=== PATIENT | female | born 1985 | race Caucasian/White ===

== ENCOUNTER 2019-12-16 11:41 | Emergency (ER) | payer MEDICAID ==
[~2019-12-16] VITALS: Ht 165.1 cm; Wt 66.0 kg
[~2019-12-16 11:41] MED LIST: ONDA4TAB59 PO
[2019-12-16 12:09] VITALS: BP 131/114
== END 2019-12-16 14:34 | disposition home or self-care (01) ==
LOC: ER 11:42
DX: S69.91XA Unspecified injury of right wrist, hand and finger(s), initial encounter (principal); R20.2 Paresthesia of skin; R20.0 Anesthesia of skin; Z98.890 Other specified postprocedural states; Z79.899 Other long term (current) drug therapy; X58.XXXA Exposure to other specified factors, initial encounter; Y93.89 Activity, other specified; Y92.89 Other specified places as the place of occurrence of the external cause; Y99.8 Other external cause status
CPT/HCPCS: 29125; 73090; 73110; 99284

== ENCOUNTER 2021-02-01 07:13 | Emergency (ER) | payer MEDICAID ==
[~2021-02-01] VITALS: Ht 165.1 cm; Wt 64.8 kg
[2021-02-01 07:18] VITALS: BP 129/81
[2021-02-01] MEDS ORDERED: ondansetron/PF 4mg/2ml inj IV ONE (07:30)
[2021-02-01] MEDS ORDERED: normal saline 1000ml 1,000 ML IV ONE (07:30)
[2021-02-01] MEDS ORDERED: morphine 4 MG/ML inj SYRINge IV ONE (07:30)
--- NOTE | 2021-02-01 07:50 | NUR ---
No ER beds available at this time. Patient is getting labs drawn in waiting room. Urine CCMS sent for labs.
[2021-02-01 08:20] LABS: URINE HCG NEGATIVE (NEG)
[2021-02-01 08:21] LABS: BASOPHILS % (AUTO) 0.5 % (0-1); EOSINOPHILS # (AUTO) 0.1 X10'3 (0-0.9); EOSINOPHILS % (AUTO) 1.5 % (0-6); HEMOGLOBIN 14.3 g/dl (12.0-16.0); LYMPHOCYTES # (AUTO) 2.3 X10'3 (1.1-4.8); LYMPHOCYTES % (AUTO) 38.5 % (21-51); MEAN CORPUSCULAR HEMOGLOBIN 29.8 PG (27.0-31.0); MEAN CORPUSCULAR HGB CONC 34.2 g/dL (33.0-36.5); MEAN CORPUSCULAR VOLUME 87.1 FL (78-98); MEAN PLATELET VOLUME 8.2 FL (7.4-10.4); MONOCYTES # (AUTO) 0.7 X10'3 (0-0.9); MONOCYTES % (AUTO) 11.1 % (2-12); NEUTROPHILS # (AUTO) 2.9 X10'3 (1.8-7.7); NEUTROPHILS % (AUTO) 48.4 % (42-75); PLATELET COUNT 249 X10'3 (140-440); RED BLOOD COUNT 4.82 X10'6 (4.20-5.60); RED CELL DISTRIBUTION WIDTH 13.7 % (11.5-14.5); WHITE BLOOD COUNT 5.9 X10'3 (4.5-11.0)
[2021-02-01 08:23] LABS: ALANINE AMINOTRANSFERASE 22 U/L (12-78); ALBUMIN 3.8 G/DL (3.4-5.0); ALBUMIN/GLOBULIN RATIO 1.2 (1.1-1.5); ALKALINE PHOSPHATASE 65 IU/L (46-116); ANION GAP 9 (8-16); ASPARTATE AMINO TRANSFERASE 16 U/L (10-37); BILIRUBIN,TOTAL 0.8 MG/DL (0.1-1.0); BLOOD UREA NITROGEN 7 MG/DL (7-18); BUN/CREATININE RATIO 10.8 (6.6-38.0); CHLORIDE 109 MMOL/L (99-107); CREATININE 0.65 MG/DL (0.40-0.90); GLUCOSE 89 MG/DL (70-104); POTASSIUM 3.9 MMOL/L (3.5-5.1); SODIUM 143 MMOL/L (135-145); TOTAL CARBON DIOXIDE 25.1 MMOL/L (24-32); TOTAL PROTEIN 7.1 G/DL (6.4-8.2); eGFR > 90 ML/MIN
--- NOTE | 2021-02-01 08:39 | NUR ---
Patient was evaluated by MD in Triage. She is awaiting a room in main ED.
[2021-02-01 08:42] LABS: CLARITY,URINE SLIGHTLY CLOUDY (Clear); COLOR,URINE STRAW (Yellow); GLUCOSE, URINE NEGATIVE (Neg); KETONES,URINE NEGATIVE (Neg); LEUKOCYTE ESTERASE ,URINE TRACE (Neg); NITRITES, URINE NEGATIVE (Neg); OCCULT BLOOD,URINE NEGATIVE (Neg); PH,URINE 7.5 (4.8-8.0); PROTEIN,URINE NEGATIVE (Neg); UA COLLECTION TYPE CLN CATCH MIDSTREAM; UROBILINOGEN,URINE 0.2 E.U/dL (0.2-1.0)
--- NOTE | 2021-02-01 08:54 | NUR ---
Patient states she now feels better. Disch home with flu inst. No distress. Patient declined IV, pain medications, and antiemetics. ER MD advised.
[2021-02-01 08:55] LABS: BACTERIA,URINE 1+ /HPF (Neg); MUCUS STRANDS NONE SEEN /LPF (Neg); RBC,URINE NONE SEEN /HPF (0-2); SQUAMOUS EPITHELIAL CELL,UR FEW /LPF (FEW); WBC,URINE 0-4 /HPF (0-4)
--- NOTE | 2021-02-01 08:56 | NUR ---
CT was done. See report.
[2021-02-01] MEDS ORDERED: morphine 10mg/ml inj. IM ONE (09:00)
[2021-02-01] MEDS ORDERED: ketorolac trometh. 30mg/ml inj. IV ONE (09:00)
--- NOTE | 2021-02-01 09:07 | NUR ---
Patient moved to bed 16, she will be receiving IM Morphine and Toradol prior to discharge.
== END 2021-02-01 09:33 | disposition home or self-care (01) ==
LOC: ER 07:14
DX: R10.32 Left lower quadrant pain (principal); Z87.442 Personal history of urinary calculi
CPT/HCPCS: 36415; 74176; 80053; 81001; 81025; 85025; 96372; 96374; 99285; J1885; J2270

== ENCOUNTER 2021-02-18 22:30 | Emergency (ER) | payer MEDICAID ==
[~2021-02-18] VITALS: Ht 165.1 cm; Wt 62.7 kg
[2021-02-18] MEDS ORDERED: ALBU6.7H9 INH (23:49)
[2021-02-19 01:16] VITALS: BP 158/76
== END 2021-02-19 01:00 | disposition home or self-care (01) ==
LOC: ER 22:31
DX: J06.9 Acute upper respiratory infection, unspecified (principal); Z20.822 Contact with and (suspected) exposure to COVID-19; R06.00 Dyspnea, unspecified; I10 Essential (primary) hypertension; R53.1 Weakness; R09.89 Other specified symptoms and signs involving the circulatory and respiratory systems; R07.89 Other chest pain; Z79.899 Other long term (current) drug therapy
CPT/HCPCS: 36415; 71045; 93005; 99285; U0003; U0005

== ENCOUNTER 2021-05-10 02:34 | Emergency (ER) | payer MEDICAID ==
[~2021-05-10] VITALS: Ht 165.1 cm; Wt 63.6 kg
[~2021-05-10 02:34] MED LIST changes: +ALBU6.7H9 INH
[2021-05-10] MEDS ORDERED: LIDO20SO16 PO (04:09)
[2021-05-10] MEDS ORDERED: penicillin G benzathine 1.2 million unit/2ml syringe IM ONE (04:10)
[2021-05-10] MEDS: PENICILLIN G BENZATHINE 2,400,000 UNIT/4 ML SYRINGE IM ONE (04:50)
[2021-05-10 04:55] VITALS: BP 122/82
== END 2021-05-10 04:56 | disposition home or self-care (01) ==
LOC: ER 02:35
DX: J02.0 Streptococcal pharyngitis (principal); J04.0 Acute laryngitis
CPT/HCPCS: 96372; 99283; J0561

== ENCOUNTER 2022-01-01 19:53 | Emergency (ER) | payer MEDICAID ==
[~2022-01-01] VITALS: Ht 165.1 cm; Wt 66.8 kg
[~2022-01-01 19:53] MED LIST changes: +LIDO20SO16 PO
[2022-01-01 20:23] LABS: CLARITY,URINE CLOUDY (Clear); COLOR,URINE YELLOW (Yellow); GLUCOSE, URINE NEGATIVE (Neg); KETONES,URINE NEGATIVE (Neg); LEUKOCYTE ESTERASE ,URINE NEGATIVE (Neg); NITRITES, URINE NEGATIVE (Neg); OCCULT BLOOD,URINE LARGE (Neg); PH,URINE >=9.0 (4.8-8.0); PROTEIN,URINE TRACE mg/dl (Neg); URINE HCG NEGATIVE (NEG)
[2022-01-01 20:38] LABS: UA COLLECTION TYPE CLN CATCH MIDSTREAM
[2022-01-01 20:39] LABS: AMORPHOUS PHOSPHATES 1+; BACTERIA,URINE FEW /HPF (Neg); RBC,URINE 50-100 /HPF (0-2); SQUAMOUS EPITHELIAL CELL,UR FEW /LPF (FEW); WBC,URINE 0-4 /HPF (0-4)
[2022-01-01] MEDS ORDERED: ketorolac tromethamine 15mg/ml inj. IM ONE (21:00)
[2022-01-01] MEDS ORDERED: ondansetron/PF 4mg/2ml inj IM ONE (21:00)
[2022-01-01] MEDS ORDERED: HYDROcodone/acetaminophen 5mg/325mg tablet PO ONE ×2 (21:05→21:55)
[2022-01-01] MEDS ORDERED: ondansetron 4mg rapidly disintigrating tab PO ONE (21:15)
[2022-01-01 21:42] LABS: BASOPHILS % (AUTO) 0.7 % (0-1); EOSINOPHILS # (AUTO) 0.1 X10'3 (0-0.9); EOSINOPHILS % (AUTO) 0.8 % (0-6); HEMATOCRIT 40.4 % (35.0-45.0); HEMOGLOBIN 13.8 g/dl (12.0-16.0); LYMPHOCYTES # (AUTO) 2.1 X10'3 (1.1-4.8); LYMPHOCYTES % (AUTO) 28.7 % (21-51); MEAN CORPUSCULAR HEMOGLOBIN 29.3 PG (27.0-31.0); MEAN CORPUSCULAR HGB CONC 34.2 g/dL (33.0-36.5); MEAN CORPUSCULAR VOLUME 85.8 FL (78-98); MEAN PLATELET VOLUME 8.2 FL (7.4-10.4); MONOCYTES # (AUTO) 0.5 X10'3 (0-0.9); MONOCYTES % (AUTO) 7.6 % (2-12); NEUTROPHILS # (AUTO) 4.5 X10'3 (1.8-7.7); NEUTROPHILS % (AUTO) 62.2 % (42-75); PLATELET COUNT 266 X10'3 (140-440); RED BLOOD COUNT 4.71 X10'6 (4.20-5.60); RED CELL DISTRIBUTION WIDTH 12.9 % (11.5-14.5); WHITE BLOOD COUNT 7.2 X10'3 (4.5-11.0)
[2022-01-01] MEDS ORDERED: tamsulosin 0.4mg capsule PO ONE (21:55)
[2022-01-01 21:58] LABS: ALANINE AMINOTRANSFERASE 271 U/L (12-78); ALBUMIN 4.1 G/DL (3.4-5.0); ALBUMIN/GLOBULIN RATIO 1.1 (1.1-1.5); ALKALINE PHOSPHATASE 96 IU/L (46-116); ANION GAP 9 (8-16); ASPARTATE AMINO TRANSFERASE 411 U/L (10-37); BILIRUBIN,TOTAL 1.3 MG/DL (0.1-1.0); BLOOD UREA NITROGEN 8 MG/DL (7-18); BUN/CREATININE RATIO 10.1 (6.6-38.0); CALCIUM 8.7 MG/DL (8.5-10.1); CHLORIDE 105 MMOL/L (99-107); CREATININE 0.79 MG/DL (0.40-0.90); GLUCOSE 122 MG/DL (70-104); POTASSIUM 3.4 MMOL/L (3.5-5.1); SODIUM 142 MMOL/L (135-145); TOTAL CARBON DIOXIDE 28.1 MMOL/L (24-32); TOTAL PROTEIN 7.8 G/DL (6.4-8.2); eGFR 82 ML/MIN
[2022-01-01] MEDS ORDERED: FLO0.4C PO (22:12)
[2022-01-01] MEDS ORDERED: HYDR-3965 PO (22:12)
[2022-01-01] MEDS ORDERED: ONDA8TAB13 PO (22:12)
[2022-01-01 22:21] VITALS: BP 110/57
== END 2022-01-01 22:23 | disposition home or self-care (01) ==
LOC: ER 19:54
DX: N23 Unspecified renal colic (principal); Z98.890 Other specified postprocedural states
CPT/HCPCS: 36415; 80053; 81001; 81025; 85025; 96372; 99284; J1885

== ENCOUNTER 2022-11-08 20:27 | Inpatient (IN) | payer MEDICAID ==
[~2022-11-08] VITALS: Ht 165.1 cm; Wt 65.9 kg
[~2022-11-08 20:27] MED LIST changes: +ALBU6.7H14 INH; -ALBU6.7H9 INH; +ONDA8TAB13 PO
[2022-11-08 20:50] LABS: BASOPHILS # (AUTO) 0.1 X10'3 (0-0.2); BASOPHILS % (AUTO) 0.7 % (0-1); EOSINOPHILS # (AUTO) 0.2 X10'3 (0-0.9); EOSINOPHILS % (AUTO) 2.4 % (0-6); HEMATOCRIT 40.8 % (35.0-45.0); HEMOGLOBIN 13.9 g/dl (12.0-16.0); LYMPHOCYTES # (AUTO) 1.8 X10'3 (1.1-4.8); LYMPHOCYTES % (AUTO) 22.1 % (21-51); MEAN CORPUSCULAR HEMOGLOBIN 29.7 PG (27.0-31.0); MEAN CORPUSCULAR VOLUME 87.4 FL (78-98); MEAN PLATELET VOLUME 8.4 FL (7.4-10.4); MONOCYTES # (AUTO) 0.7 X10'3 (0-0.9); MONOCYTES % (AUTO) 8.5 % (2-12); NEUTROPHILS # (AUTO) 5.5 X10'3 (1.8-7.7); NEUTROPHILS % (AUTO) 66.3 % (42-75); PLATELET COUNT 272 X10'3 (140-440); RED BLOOD COUNT 4.67 X10'6 (4.20-5.60); RED CELL DISTRIBUTION WIDTH 13.1 % (11.5-14.5); WHITE BLOOD COUNT 8.3 X10'3 (4.5-11.0)
[2022-11-08 21:02] LABS: ALANINE AMINOTRANSFERASE 365 U/L (12-78); ALBUMIN 4.3 G/DL (3.4-5.0); ALBUMIN/GLOBULIN RATIO 1.3 (1.1-1.5); ALKALINE PHOSPHATASE 99 IU/L (46-116); ANION GAP 5 (8-16); ASPARTATE AMINO TRANSFERASE 320 U/L (10-37); BILIRUBIN,TOTAL 2.8 MG/DL (0.1-1.0); BLOOD UREA NITROGEN 10 MG/DL (7-18); BUN/CREATININE RATIO 12.8 (10.0-20.0); CALCIUM 9.5 MG/DL (8.5-10.1); CHLORIDE 101 MMOL/L (99-107); CREATININE 0.78 MG/DL (0.40-0.90); GLUCOSE 101 MG/DL (70-104); POTASSIUM 3.7 MMOL/L (3.5-5.1); SODIUM 139 MMOL/L (135-145); TOTAL CARBON DIOXIDE 32.7 MMOL/L (24-32); TOTAL PROTEIN 7.5 G/DL (6.4-8.2); eGFR 83 ML/MIN
[2022-11-08 21:08] LABS: MAGNESIUM 1.8 MG/DL (1.5-2.4)
[2022-11-08] MEDS ORDERED: ondansetron/PF 4mg/2ml inj IM ONE (21:30)
[2022-11-08] MEDS ORDERED: morphine 4 MG/ML inj SYRINge IV ONE (21:30)
[2022-11-08] MEDS ORDERED: ondansetron/PF 4mg/2ml inj IV STA (21:41)
--- NOTE | 2022-11-08 21:54 | NUR ---
us at bedside
[2022-11-08 22:42] LABS: LIPASE 136 U/L (73-393)
[2022-11-08] MEDS ORDERED: FLUT15.845 BOTHNARES (22:43)
[2022-11-08] MEDS ORDERED: GABA300C PO (22:43)
[2022-11-08] MEDS ORDERED: HYDR-3686 PO (22:43)
[2022-11-08] MEDS ORDERED: magnesium 2GM in 50ml NS 50 ML IV PRN (23:00)
[2022-11-08] MEDS ORDERED: magnesium Cl slow-release 64mg tablet PO PRN (23:00)
[2022-11-08] MEDS ORDERED: mag hydrox/Alum hydrox/simeth 30ml oral suspension PO PRN (23:00)
[2022-11-08] MEDS ORDERED: potassium Cl 40MEQ/1/2NS 520ml 520 ML IV PRN (23:00)
[2022-11-08] MEDS ORDERED: magnesium hydroxide 30ml (MOM) UD suspension PO PRN (23:00)
[2022-11-08] MEDS ORDERED: potassium Cl 20 mEq SR tablet PO PRN ×2 (23:00)
[2022-11-08] MEDS ORDERED: magnesium 4gm in 100ml NS 100 ML IV PRN (23:00)
[2022-11-08] MEDS ORDERED: hydrOXYzine 25 MG tablet PO PRN (23:05)
[2022-11-08] MEDS: normal saline 1000ml 1,000 ML IV SCH (23:17)
[2022-11-08] MEDS: morphine 2 MG/ML inj. syringe IV PRN (23:19)
[2022-11-09] VITALS (20 sets, daily range): BP systolic 96–134; BP diastolic 38–87
[2022-11-09] MEDS ORDERED: albuterol 2.5 MG/3 ML nebule NEB SCH (02:00)
--- NOTE | 2022-11-09 02:00 | NUR ---
Patient in room ORTHO 4021. I have received report from Shai CANTOR and had the opportunity to ask questions and assume patient care.
--- NOTE | 2022-11-09 02:15 | NUR ---
REPORT CALLED TO FLOOR RN, PT TX TO ROOM 4021A BY NURSE.
[2022-11-09] MEDS: morphine 2 MG/ML inj. syringe IV PRN ×3 (03:01→11:50)
[2022-11-09] MEDS: ondansetron/PF 4mg/2ml inj IV PRN ×2 (03:01→11:58)
[2022-11-09 06:09] LABS: BASOPHILS % (AUTO) 0.5 % (0-1); EOSINOPHILS # (AUTO) 0.4 X10'3 (0-0.9); EOSINOPHILS % (AUTO) 5.1 % (0-6); HEMATOCRIT 38.6 % (35.0-45.0); HEMOGLOBIN 12.9 g/dl (12.0-16.0); LYMPHOCYTES # (AUTO) 2.5 X10'3 (1.1-4.8); LYMPHOCYTES % (AUTO) 33.9 % (21-51); MEAN CORPUSCULAR HEMOGLOBIN 29.4 PG (27.0-31.0); MEAN CORPUSCULAR HGB CONC 33.5 g/dL (33.0-36.5); MEAN CORPUSCULAR VOLUME 87.6 FL (78-98); MEAN PLATELET VOLUME 8.6 FL (7.4-10.4); MONOCYTES # (AUTO) 0.6 X10'3 (0-0.9); MONOCYTES % (AUTO) 8.9 % (2-12); NEUTROPHILS # (AUTO) 3.7 X10'3 (1.8-7.7); NEUTROPHILS % (AUTO) 51.6 % (42-75); PLATELET COUNT 249 X10'3 (140-440); RED CELL DISTRIBUTION WIDTH 13.3 % (11.5-14.5); WHITE BLOOD COUNT 7.2 X10'3 (4.5-11.0)
--- NOTE | 2022-11-09 06:17 | NUR ---
Problems reprioritized. Patient report given, questions answered & plan of care reviewed with Lyle CHOI.
[2022-11-09 06:25] LABS: ALANINE AMINOTRANSFERASE 316 U/L (12-78); ALBUMIN 3.4 G/DL (3.4-5.0); ALKALINE PHOSPHATASE 86 IU/L (46-116); ANION GAP 3 (8-16); ASPARTATE AMINO TRANSFERASE 221 U/L (10-37); BILIRUBIN,TOTAL 4.2 MG/DL (0.1-1.0); BLOOD UREA NITROGEN 8 MG/DL (7-18); BUN/CREATININE RATIO 10.8 (10.0-20.0); CALCIUM 8.8 MG/DL (8.5-10.1); CHLORIDE 105 MMOL/L (99-107); CREATININE 0.74 MG/DL (0.40-0.90); GLUCOSE 89 MG/DL (70-104); MAGNESIUM 1.8 MG/DL (1.5-2.4); POTASSIUM 3.7 MMOL/L (3.5-5.1); SODIUM 140 MMOL/L (135-145); TOTAL CARBON DIOXIDE 31.9 MMOL/L (24-32); eGFR 88 ML/MIN
[2022-11-09 06:31] LABS: ALBUMIN/GLOBULIN RATIO 1.2 (1.1-1.5); TOTAL PROTEIN 6.2 G/DL (6.4-8.2)
[2022-11-09] MEDS: K and/or MAG REPLACEMENT MC SCH ×2 (07:05→20:00)
[2022-11-09] MEDS: docusate sod 100mg capsule PO SCH ×2 (07:09→20:24)
[2022-11-09] MEDS: fluticasone nasal spray 16GM bottle NS SCH (07:14)
[2022-11-09] MEDS: normal saline 1000ml 1,000 ML IV SCH ×2 (14:20→19:00)
[2022-11-09] MEDS: CefTRIAXone/D5W-Rocephin 1gm 50 ML IV SCH (14:21)
--- NOTE | 2022-11-09 14:25 | NUR ---
NS Priimary IV bag not scanning after multiple failed attempts.
[2022-11-09 14:34] LABS: BETA HCG,QUANTITATIVE < 1.0 mIU/ml
[2022-11-09] MEDS ORDERED: proCHLORperazine 10 MG/2 ml inj IV PRN (14:55)
--- NOTE | 2022-11-09 16:31 | NUR ---
[id number] chelle Kiran- Clarifying how long PT needs to stay NPO. Family at bedside looking for updates. Thanks. Taylor [id number]
[2022-11-09] MEDS ORDERED: fentaNYL/PF 50MCG/1 ML 2ML syringe ONE (16:43)
[2022-11-09] MEDS ORDERED: glucagon, human recombinant 1mg kit ONE (16:43)
[2022-11-09] MEDS ORDERED: MIDAZolam 1 MG/ML 5ML VIAL ONE (16:44)
[2022-11-09] MEDS ORDERED: diphenhydrAMINE 50 mg/ml inj ONE (16:44)
[2022-11-09] MEDS ORDERED: LIDOcaine Viscous 15ml cup ONE (16:44)
[2022-11-09] MEDS ORDERED: iohexol 300mg/ml 100ml inj. ONE (16:44)
--- NOTE | 2022-11-09 18:00 | NUR ---
I have reviewed and agree with interventions, assessments, and documentation by Taylor Edgar LVN.
--- NOTE | 2022-11-09 18:20 | NUR ---
Patient in room ORTHO 4012. I have received report from SAKSHI Masters and had the opportunity to ask questions and assume patient care. Patient in GI Lab for ERCP
--- NOTE | 2022-11-09 19:27 | NUR ---
Problems reprioritized. Patient report given, questions answered & plan of care reviewed with SAKSHI Moser for IR. Patient is back for ERCP, no stones found just sludge. She is back to bed and resting comfortably, I will continue to monitor.
[2022-11-09] MEDS: heparin, porcine 5000 units/ml vial SQ SCH (20:25)
[2022-11-09] MEDS: gabapentin 300mg capsule PO SCH (20:25)
[2022-11-10] VITALS (16 sets, daily range): BP systolic 112–167; BP diastolic 50–107
[2022-11-10] MEDS: normal saline 1000ml 1,000 ML IV SCH ×3 (05:00→20:18)
--- NOTE | 2022-11-10 06:00 | NUR ---
Problems reprioritized. Patient report given, questions answered & plan of care reviewed with SAKSHI Vazquez.
[2022-11-10 06:51] LABS: BASOPHILS % (AUTO) 0.4 % (0-1); EOSINOPHILS # (AUTO) 0.2 X10'3 (0-0.9); EOSINOPHILS % (AUTO) 1.9 % (0-6); HEMATOCRIT 36.2 % (35.0-45.0); HEMOGLOBIN 12.3 g/dl (12.0-16.0); LYMPHOCYTES # (AUTO) 1.9 X10'3 (1.1-4.8); LYMPHOCYTES % (AUTO) 20.3 % (21-51); MEAN CORPUSCULAR HGB CONC 33.9 g/dL (33.0-36.5); MEAN CORPUSCULAR VOLUME 88.4 FL (78-98); MEAN PLATELET VOLUME 8.3 FL (7.4-10.4); MONOCYTES # (AUTO) 0.8 X10'3 (0-0.9); MONOCYTES % (AUTO) 7.9 % (2-12); NEUTROPHILS # (AUTO) 6.6 X10'3 (1.8-7.7); NEUTROPHILS % (AUTO) 69.5 % (42-75); PLATELET COUNT 237 X10'3 (140-440); RED BLOOD COUNT 4.09 X10'6 (4.20-5.60); RED CELL DISTRIBUTION WIDTH 13.2 % (11.5-14.5); WHITE BLOOD COUNT 9.5 X10'3 (4.5-11.0)
[2022-11-10 07:00] LABS: ALANINE AMINOTRANSFERASE 189 U/L (12-78); ALBUMIN 3.1 G/DL (3.4-5.0); ALBUMIN/GLOBULIN RATIO 1.1 (1.1-1.5); ALKALINE PHOSPHATASE 81 IU/L (46-116); ANION GAP 10 (8-16); ASPARTATE AMINO TRANSFERASE 63 U/L (10-37); BILIRUBIN,TOTAL 1.7 MG/DL (0.1-1.0); BLOOD UREA NITROGEN 13 MG/DL (7-18); BUN/CREATININE RATIO 19.4 (10.0-20.0); CHLORIDE 105 MMOL/L (99-107); CREATININE 0.67 MG/DL (0.40-0.90); GLUCOSE 59 MG/DL (70-104); MAGNESIUM 1.7 MG/DL (1.5-2.4); SODIUM 138 MMOL/L (135-145); TOTAL CARBON DIOXIDE 22.8 MMOL/L (24-32); TOTAL PROTEIN 5.8 G/DL (6.4-8.2); eGFR > 90 ML/MIN
[2022-11-10] MEDS: K and/or MAG REPLACEMENT MC SCH ×2 (07:24→20:00)
[2022-11-10] MEDS: heparin, porcine 5000 units/ml vial SQ SCH ×2 (07:24→20:00)
[2022-11-10] MEDS: docusate sod 100mg capsule PO SCH ×2 (07:26→20:18)
[2022-11-10] MEDS: fluticasone nasal spray 16GM bottle NS SCH (07:26)
[2022-11-10] MEDS: CefTRIAXone/D5W-Rocephin 1gm 50 ML IV SCH (07:56)
[2022-11-10] MEDS: morphine 2 MG/ML inj. syringe IV PRN ×4 (07:56→22:58)
[2022-11-10] MEDS: ondansetron/PF 4mg/2ml inj IV PRN (12:10)
[2022-11-10] MEDS ORDERED: BUPIVAcaine/PF 2.5 mg/ml (0.25%) 30ml vial ONE (12:47)
--- NOTE | 2022-11-10 13:43 | NUR ---
PT taken down to surgery.
[2022-11-10] MEDS ORDERED: hydrALAZINE 20mg/ml inj. IV PRN (13:45)
[2022-11-10] MEDS ORDERED: ringers solution, lacted 1,000 ML IV SCH (13:45)
[2022-11-10] MEDS ORDERED: labetalol 20mg/4ml (5mg/ml) syringe IV PRN (13:45)
[2022-11-10] MEDS ORDERED: morphine 2 MG/ML inj. syringe IV PRN (13:45)
[2022-11-10] MEDS ORDERED: meperidine/PF 25mg/ml syringe IV PRN ×3 (13:45)
[2022-11-10] MEDS ORDERED: acetaminophen 1,000mg/100ml IV 100 ML IV PRN (13:45)
[2022-11-10] MEDS ORDERED: proCHLORperazine 10 MG/2 ml inj IV PRN (13:45)
[2022-11-10] MEDS ORDERED: ondansetron/PF 4mg/2ml inj IV PRN ×2 (13:45→15:40)
[2022-11-10] MEDS ORDERED: sevoflurane 250ml liquid IH ONE (14:02)
[2022-11-10] MEDS ORDERED: midazolam 1 mg/ML 2ml injection ONE (14:07)
[2022-11-10] MEDS ORDERED: fentaNYL /PF 50mcg/ml 5ml ampule ONE (14:08)
[2022-11-10] MEDS ORDERED: rocuronium 10mg/ml inj IV ONE (14:29)
[2022-11-10] MEDS ORDERED: propofol inj 20 ML IV ONE (14:29)
[2022-11-10] MEDS ORDERED: ceFOXitin 1000 MG inj ONE ×2 (14:29)
[2022-11-10] MEDS ORDERED: LIDOcaine 2% (20mg/ml) 5ml vial ONE (14:29)
[2022-11-10] MEDS ORDERED: BUPIVAcaine/PF 2.5 mg/ml (0.25%) 30ml vial IJ ONE (14:30)
[2022-11-10] MEDS ORDERED: dexamethasone sod phosphate 4mg/ml inj. ONE (14:30)
[2022-11-10] MEDS ORDERED: ondansetron/PF 4mg/2ml inj ONE (14:30)
[2022-11-10] MEDS ORDERED: glycopyrrolate 0.2mg/ml inj ONE (15:35)
[2022-11-10] MEDS ORDERED: sugammadex 200mg/2ml injection IV ONE (15:36)
[2022-11-10] MEDS ORDERED: neostigmine methylsulfate 1 MG/ML 10ml vial ONE (15:36)
[2022-11-10] MEDS ORDERED: naloxone 0.4 mg/ml inj IV PRN (15:40)
[2022-11-10] MEDS ORDERED: HYDROcodone/acetaminophen 5mg/325mg tablet PO PRN (15:40)
--- NOTE | 2022-11-10 15:48 | NUR ---
Received from OR via HOSPITAL BED, accompanied by Anesthesiologist and report given by SHAYY Anesthesiologist. PATIENT WAKING UP, SEVERE ABDOMINAL PAIN-WILL MEDICATE, V/S WNL, SCD ON , PIV 22G RIGHT HAND, RACHEL MORILLO SITES CLOSED C/D/I TO ABDOMEN. Addendum: 11/10/22 at 1609 by Shane Bah RN Amended: Links added.
[2022-11-10] MEDS: morphine 4 MG/ML inj SYRINge IV PRN ×2 (16:03→16:12)
--- NOTE | 2022-11-10 16:28 | NUR ---
PATIENT HAS MET ALL CRITERIA FOR TRANSFER TO ORTHO FLOOR. VSS. DRESSINGS INTACT. BED LOW, CALL LIGHT PRESENT AND 2 RAILS UP. RN PRESENT TO ACCEPT CARE OF PATIENT AND REPORT HAS BEEN CALLED. ALL QUESTIONS ANSWERED TO ACCEPTING RN. Addendum: 11/10/22 at 1633 by Shane Bah RN Amended: Links added.
--- NOTE | 2022-11-10 17:02 | NUR ---
Sent to Dr Neumann PAGER ID: [phone] MESSAGE: Noemi Aviles [id number] Post-op BPs elevated= 154/91, 167/104, HR: 80-102 Any new orders? Merray/Taylor @ 1474y
--- NOTE | 2022-11-10 18:00 | NUR ---
Pt awakens easily for post op assessment. Abd round and slightly distended, w/ BS in x4 quadrants. Pt denies nausea. BP 140/84, HR 80. Pt ambulated to BR w/ minimal assist, stood at sink and washed hands, and rtn to bed w/ min assistance. Pt denies any needs at this time. Cooling pack provided to pt per request, & SAKSHI Stewart, is aware.
--- NOTE | 2022-11-10 18:00 | NUR ---
Per JIMBO Vazquez, Dr Neumann rtn'd call and stated no new orders regarding HTN due to that BPs appear to be trending down at this time. Nursing will notify MD if BPs again reflect HTN.
--- NOTE | 2022-11-10 18:00 | NUR ---
I have reviewed and agree with interventions, assessments, and documentation by Taylor Edgar LVN.
--- NOTE | 2022-11-10 18:30 | NUR ---
Assumed care of pt report received from Sonam Cortes.
[2022-11-10] MEDS: gabapentin 300mg capsule PO SCH (20:57)
[2022-11-11] MEDS: morphine 2 MG/ML inj. syringe IV PRN (01:09)
[2022-11-11] MEDS ORDERED: HYDROcodone/acetaminophen 10/325mg tab PO PRN ×2 (01:15→05:30)
--- NOTE | 2022-11-11 01:34 | NUR ---
straight cath for 750 ml clear yellow urine, pt had frequency all night but said she was going enough.
[2022-11-11 02:00] VITALS: BP 124/62
--- NOTE | 2022-11-11 05:00 | NUR ---
Call to Dr. Morejon re: urinary retention, we dc'd the morphine increased the norco, pt is ambulating. she voided 200 and pvr 500 on bladder scanner. So will straight cath.
[2022-11-11] MEDS ORDERED: HYDROcodone/acetaminophen 10/325mg tab PO ONE (05:30)
[2022-11-11 06:00] VITALS: BP 147/72
--- NOTE | 2022-11-11 06:10 | NUR ---
Patient in room ORTHO 4012. I have received report from Pat CANTOR and had the opportunity to ask questions and assume patient care.
[2022-11-11 06:31] LABS: BASOPHILS % (AUTO) 0.1 % (0-1); EOSINOPHILS % (AUTO) 0.1 % (0-6); HEMATOCRIT 40.5 % (35.0-45.0); HEMOGLOBIN 13.7 g/dl (12.0-16.0); LYMPHOCYTES % (AUTO) 11.8 % (21-51); MEAN CORPUSCULAR HEMOGLOBIN 29.8 PG (27.0-31.0); MEAN CORPUSCULAR HGB CONC 33.8 g/dL (33.0-36.5); MEAN CORPUSCULAR VOLUME 88.2 FL (78-98); MEAN PLATELET VOLUME 8.5 FL (7.4-10.4); MONOCYTES # (AUTO) 0.6 X10'3 (0-0.9); MONOCYTES % (AUTO) 7.3 % (2-12); NEUTROPHILS # (AUTO) 7.2 X10'3 (1.8-7.7); NEUTROPHILS % (AUTO) 80.7 % (42-75); PLATELET COUNT 264 X10'3 (140-440); RED BLOOD COUNT 4.59 X10'6 (4.20-5.60); WHITE BLOOD COUNT 8.9 X10'3 (4.5-11.0)
--- NOTE | 2022-11-11 06:39 | NUR ---
Report to Sonam Flores
[2022-11-11 06:51] LABS: ALANINE AMINOTRANSFERASE 171 U/L (12-78); ALBUMIN 3.8 G/DL (3.4-5.0); ALBUMIN/GLOBULIN RATIO 1.2 (1.1-1.5); ALKALINE PHOSPHATASE 87 IU/L (46-116); ANION GAP 5 (8-16); ASPARTATE AMINO TRANSFERASE 39 U/L (10-37); BILIRUBIN,TOTAL 1.1 MG/DL (0.1-1.0); BLOOD UREA NITROGEN 3 MG/DL (7-18); BUN/CREATININE RATIO 4.5 (10.0-20.0); CALCIUM 8.5 MG/DL (8.5-10.1); CHLORIDE 103 MMOL/L (99-107); CREATININE 0.66 MG/DL (0.40-0.90); GLUCOSE 107 MG/DL (70-104); MAGNESIUM 1.8 MG/DL (1.5-2.4); POTASSIUM 3.8 MMOL/L (3.5-5.1); SODIUM 135 MMOL/L (135-145); TOTAL CARBON DIOXIDE 26.9 MMOL/L (24-32); eGFR > 90 ML/MIN
[2022-11-11] MEDS: fluticasone nasal spray 16GM bottle NS SCH (07:29)
[2022-11-11] MEDS: heparin, porcine 5000 units/ml vial SQ SCH (07:30)
[2022-11-11] MEDS: docusate sod 100mg capsule PO SCH (07:30)
[2022-11-11] MEDS: CefTRIAXone/D5W-Rocephin 1gm 50 ML IV SCH (07:43)
[2022-11-11] MEDS: K and/or MAG REPLACEMENT MC SCH (08:00)
[2022-11-11 09:08] LABS: CLARITY,URINE SLIGHTLY CLOUDY (Clear); COLOR,URINE STRAW (Yellow); GLUCOSE, URINE NEGATIVE (Neg); KETONES,URINE 40 mg/dl (Neg); LEUKOCYTE ESTERASE ,URINE NEGATIVE (Neg); NITRITES, URINE NEGATIVE (Neg); OCCULT BLOOD,URINE TRACE-INTACT (Neg); PROTEIN,URINE NEGATIVE (Neg); UROBILINOGEN,URINE 0.2 E.U/dL (0.2-1.0)
[2022-11-11 09:44] LABS: UA COLLECTION TYPE NON-SPECIFIED
[2022-11-11 09:46] LABS: BACTERIA,URINE FEW /HPF (Neg); MUCUS STRANDS FEW /LPF (Neg); RBC,URINE NONE SEEN /HPF (0-2); SQUAMOUS EPITHELIAL CELL,UR MODERATE /LPF (FEW); WBC,URINE 0-4 /HPF (0-4)
[2022-11-11 10:00] VITALS: BP 142/89
[2022-11-11] MEDS: normal saline 1000ml 1,000 ML IV SCH (11:00)
[2022-11-11] MEDS ORDERED: HYDR-3965 PO ×2 (12:00→12:01)
--- NOTE | 2022-11-11 12:25 | NUR ---
Patient discharged home via POV with belongings. PIV d/c'd, tip in tact. Pt alert and appropriate at time of discharge.
== END 2022-11-11 12:25 | disposition home or self-care (01) | DRG 263 ==
LOC: ER 20:28 → ED HOLD 23:03 → ORTHO 4S 11-09 02:15
PROVIDERS: ADMIT Internal Medicine; ATTEND Family Medicine
PROC: 0F798ZZ Dilation of Common Bile Duct, Via Natural or Artificial Opening Endoscopic (ICD-10-PCS; 2022-11-09)
PROC: 8E0W4CZ Robotic Assisted Procedure of Trunk Region, Percutaneous Endoscopic Approach (ICD-10-PCS; 2022-11-10)
PROC: 0FT44ZZ Resection of Gallbladder, Percutaneous Endoscopic Approach (ICD-10-PCS; principal; 2022-11-10 14:02)
DX: K80.62 Calculus of gallbladder and bile duct with acute cholecystitis without obstruction (principal); F17.210 Nicotine dependence, cigarettes, uncomplicated; F41.9 Anxiety disorder, unspecified; R79.89 Other specified abnormal findings of blood chemistry; K82.8 Other specified diseases of gallbladder; R03.0 Elevated blood-pressure reading, without diagnosis of hypertension; R74.01 Elevation of levels of liver transaminase levels; M19.09 Primary osteoarthritis, other specified site; N20.0 Calculus of kidney; Z87.442 Personal history of urinary calculi; Z90.710 Acquired absence of both cervix and uterus; Z98.891 History of uterine scar from previous surgery; Z79.899 Other long term (current) drug therapy
CPT/HCPCS: 36415; 43262; 43264; 71045; 74181; 76700; 80053; 81001; 83690; 83735; 83880; 84132; 84484; 84702; 85025; 86885; 86900; 86901; 87081; 93005; 99152; 99153; 99285; A4215; A4618; A4620; A6250; A7000; C1769; G0378; J0131; J0694; J0696; J0780; J1100; J1200; J1610; J1644; J2175; J2250; J2270; J2405; J2704; J2710; J3010; J3490; J7030; J7120; Q0177; Q9967

== ENCOUNTER 2023-09-06 09:25 | Emergency (ER) | payer MEDICAID ==
[~2023-09-06 09:25] MED LIST changes: +FLUT15.845 BOTHNARES; +GABA300C PO; +HYDR-3686 PO; -LIDO20SO16 PO; -ONDA4TAB59 PO; -ONDA8TAB13 PO
[2023-09-06 09:37] VITALS: BP 172/97; PULSE 73; RESP 16; TEMP 97.5; O2SAT 97
[2023-09-06 09:59] LABS: BASOPHILS # (AUTO) 0.1 X10'3 (0-0.2); BASOPHILS % (AUTO) 1.1 % (0-1); EOSINOPHILS # (AUTO) 0.1 X10'3 (0-0.9); EOSINOPHILS % (AUTO) 1.9 % (0-6); HEMOGLOBIN 14.5 g/dl (12.0-16.0); LYMPHOCYTES # (AUTO) 2.1 X10'3 (1.1-4.8); LYMPHOCYTES % (AUTO) 38.2 % (21-51); MEAN CORPUSCULAR HEMOGLOBIN 29.9 PG (27.0-31.0); MEAN CORPUSCULAR HGB CONC 34.4 g/dL (33.0-36.5); MEAN CORPUSCULAR VOLUME 86.9 FL (78-98); MEAN PLATELET VOLUME 7.8 FL (7.4-10.4); MONOCYTES # (AUTO) 0.5 X10'3 (0-0.9); MONOCYTES % (AUTO) 9.3 % (2-12); NEUTROPHILS # (AUTO) 2.7 X10'3 (1.8-7.7); NEUTROPHILS % (AUTO) 49.5 % (42-75); PLATELET COUNT 266 X10'3 (140-440); RED BLOOD COUNT 4.84 X10'6 (4.20-5.60); RED CELL DISTRIBUTION WIDTH 13.1 % (11.5-14.5); WHITE BLOOD COUNT 5.4 X10'3 (4.5-11.0)
[2023-09-06 10:16] LABS: ALANINE AMINOTRANSFERASE 18 U/L (12-78); ALBUMIN 3.9 G/DL (3.4-5.0); ALBUMIN/GLOBULIN RATIO 1.1 (1.1-1.5); ALKALINE PHOSPHATASE 60 IU/L (46-116); ANION GAP 12 (8-16); ASPARTATE AMINO TRANSFERASE 17 U/L (10-37); BILIRUBIN,TOTAL 0.9 MG/DL (0.1-1.0); BLOOD UREA NITROGEN 12 MG/DL (7-18); BUN/CREATININE RATIO 16.2 (10.0-20.0); CALCIUM 8.9 MG/DL (8.5-10.1); CHLORIDE 106 MMOL/L (99-107); CREATININE 0.74 MG/DL (0.40-0.90); GLUCOSE 96 MG/DL (70-104); POTASSIUM 4.1 MMOL/L (3.5-5.1); SODIUM 143 MMOL/L (135-145); TOTAL CARBON DIOXIDE 25.1 MMOL/L (24-32); TOTAL PROTEIN 7.5 G/DL (6.4-8.2); eGFR 88 ML/MIN
[2023-09-06 10:23] LABS: PRO BRAIN NATRIURETIC PEPTIDE 71 PG/ML (0-125)
== END 2023-09-06 20:07 | disposition left against medical advice (07) ==
LOC: ER 09:25
DX: R07.9 Chest pain, unspecified (principal); R06.02 Shortness of breath; Z53.21 Procedure and treatment not carried out due to patient leaving prior to being seen by health care provider
CPT/HCPCS: 36415; 71045; 80053; 83880; 84484; 85025; 93005; 99281

== ENCOUNTER 2023-11-25 11:51 | Emergency (ER) | payer MEDICAID ==
[~2023-11-25] VITALS: Ht 165.1 cm; Wt 72.2 kg
[2023-11-25 12:13] LABS: BASOPHILS # (AUTO) 0.1 X10'3 (0-0.2); BASOPHILS % (AUTO) 0.9 % (0-1); EOSINOPHILS # (AUTO) 0.1 X10'3 (0-0.9); EOSINOPHILS % (AUTO) 1.8 % (0-6); HEMATOCRIT 42.2 % (35.0-45.0); HEMOGLOBIN 14.1 g/dl (12.0-16.0); LYMPHOCYTES # (AUTO) 2.2 X10'3 (1.1-4.8); LYMPHOCYTES % (AUTO) 34.3 % (21-51); MEAN CORPUSCULAR HEMOGLOBIN 29.1 PG (27.0-31.0); MEAN CORPUSCULAR HGB CONC 33.4 g/dL (33.0-36.5); MEAN CORPUSCULAR VOLUME 86.9 FL (78-98); MEAN PLATELET VOLUME 7.9 FL (7.4-10.4); MONOCYTES # (AUTO) 0.6 X10'3 (0-0.9); MONOCYTES % (AUTO) 9.4 % (2-12); NEUTROPHILS # (AUTO) 3.4 X10'3 (1.8-7.7); NEUTROPHILS % (AUTO) 53.6 % (42-75); PLATELET COUNT 270 X10'3 (140-440); RED BLOOD COUNT 4.86 X10'6 (4.20-5.60); WHITE BLOOD COUNT 6.3 X10'3 (4.5-11.0)
[2023-11-25 12:38] LABS: ANION GAP 7 (8-16); BLOOD UREA NITROGEN 7 MG/DL (7-18); BUN/CREATININE RATIO 9.3 (10.0-20.0); CALCIUM 8.9 MG/DL (8.5-10.1); CHLORIDE 101 MMOL/L (99-107); CREATININE 0.75 MG/DL (0.40-0.90); GLUCOSE 91 MG/DL (70-104); POTASSIUM 3.2 MMOL/L (3.5-5.1); PRO BRAIN NATRIURETIC PEPTIDE 138 PG/ML (0-125); SODIUM 137 MMOL/L (135-145); TOTAL CARBON DIOXIDE 29.3 MMOL/L (24-32); eCRCL 92 ML/MIN; eGFR 86 ML/MIN
[2023-11-25] MEDS ORDERED: ketorolac trometh. 30mg/ml inj. IM ONE (16:00)
[2023-11-25] MEDS: ketorolac tromethamine 15mg/ml inj. IM ONE (16:07)
[2023-11-25] MEDS ORDERED: METH-798 PO (16:43)
[2023-11-25 16:45] VITALS: BP 128/68; PULSE 84; RESP 14; TEMP 98.6; O2SAT 98
== END 2023-11-25 16:47 | disposition home or self-care (01) ==
LOC: ER 11:52
DX: R07.89 Other chest pain (principal); Z79.899 Other long term (current) drug therapy; Z98.890 Other specified postprocedural states
CPT/HCPCS: 36415; 71045; 80048; 83880; 84484; 85025; 93005; 96372; 99285; J1885

== ENCOUNTER 2024-11-18 00:02 | Emergency (ER) | payer MEDICAID ==
[~2024-11-18] VITALS: Ht 165.1 cm; Wt 68.0 kg
[~2024-11-18 00:02] MED LIST changes: +METH-798 PO
[2024-11-18 00:15] VITALS: TEMP 97.6
--- NOTE | 2024-11-18 00:44 | Physician Documentation ---
History of Present Illness Chief Complaint: Abdominal Pain Stated Complaint: ABD PAIN Time Seen by MD: 00:40 Primary Medical Doctor: None HPI This is a pleasant 39-year-old female, status post hysterectomy and cholecystectomy, who comes in for evaluation of lower abdominal pain that started this morning. The pain is moderate to severe in its intensity, describes it as labor with baseline crampy pain and occasional sharp pains. Different from kidney stones. No particular palliating or aggravating factors. Extra-strength Tylenol did not help. Never experienced this type of pain in the past. Denies any other symptoms. No concern for tobacco, alcohol or illicit substances use Medication Reconciliation Allergies: Coded Allergies: No Known Allergies (Unverified , 09/06/23) Scheduled Albuterol Sulfate (Proventil Hfa), 2 PUFFS INH Q6H Fluticasone Propionate (Fluticasone Propionate), 2 SPRAYS BOTHNARES DAILY, (Reported) Gabapentin (Neurontin), 2 CAP PO HS, (Reported) Methocarbamol (Methocarbamol), 1 TAB PO Q8H Scheduled PRN Hydroxyzine Hcl* (Atarax*), 1 TAB PO TID PRN for anxiety, (Reported) Past Medical History Past Medical History: Kidney Stones Past Surgical History: Patient History: FH: colon cancer MOTHER FH: non-Hodgkin's lymphoma FAMILY/OTHER Alcohol Use: None Drug Use: none Occupation: employed Review of Systems ROS 10 point review of systems was performed and unless noted above in HPI is negative for acute process/complaint. Physical Exam Vital Signs: Temperature: 97.6, Source: Temporal, Heart Rate: 65, Respiratory Rate: 18, BP: 148/108, Pulse Oximetry: 100, Weight: 67.950 Oxygen Flow Rate: 0 Physical Exam GENERAL: Awake, alert, oriented, GCS 15, no apparent distress, non-toxic appearing, answers questions, follows commands appropriately. Examined in bed 7., accompanied by daughter HEENT: Atraumatic, normocephalic, pupils equal, extraocular muscles intact, sclerae anicteric, mucus membranes moist, oropharynx is clear, no stridor. NECK: supple, full active range of motion, trachea midline, no thyromegaly, no lymphadenopathy, no JVD. CARDIOVASCULAR: regular rate/rhythm, no murmurs/gallops/rubs, Pulses are 2+ in all extremities and symmetric. Capillary refill less than 2 seconds. PULMONARY: Nonlabored, good air movement ,no respiratory distress, speaking in full sentences, clear to auscultation bilaterally, no wheezing, no ronchi, no rales, no accessory muscle use. GASTROINTESTINAL: Soft, lower abdominal tenderness to palpation, right lower quadrant greater than fall, reproducing chief complaint, non-distended, normal active bowel sounds, no organomegaly, no pulsatile masses, no CVA tenderness. NEUROLOGIC: Lucid with normal mental status. Normal facial symmetry. Moves all extremities symmetrically and with purpose. No truncal ataxia. Speech is fluid without evidence of dysarthria or aphasia, no focal deficits appreciated. MUSCULOSKELETAL: There is full range of motion of all extremities. There is no joint pain or joint swelling or joint erythema. There is no muscle pain or tenderness or swelling. EXTREMITIES: warm, well-perfused, no cyanosis, no clubbing, no edema, no acute deformities. Skin: warm, dry, no rashes or lesions, no jaundice, no petechiae orpurpura. No ecchymosis. PSYCHIATRIC: Normal affect, normal insight, normal concentration. Focused exam: [] Involuntary guarding but no rebound Progress Results/Orders Results/Orders Orders - RAMONE DOMINGUEZ DO Cbc/Diff (11/18/24 00:32) Lipase (11/18/24:32) Urinalysis, Cult If Indicated (11/18/24 00:32) MG (11/18/24 00:32) Monitor (11/18/24 00:32) Saline Lock (11/18/24 00:32) Hcg Serum Ql (11/18/24 00:32) Ct Abdomen Pelvis (11/18/24 00:32) Hs Troponin I W Calculations (11/18/24 00:32) CMP (11/18/24 00:32) Ondansetron Inj. (Zofran 4mg/2ml Vial) (11/18/24 00:40) Morphine 4mg/Ml Inj. (Morphine Inj.) (11/18/24 00:40) Completed Orders - RAMONE DOMINGUEZ DO Normal Saline 1000ml (Sodium Chloride 10 (11/18/24 00:35) Vital Signs 11/18/24 00:15 Temp 97.6 Pulse 65 Resp 18 B/P (MAP) 148/108 Pulse Ox 100 O2 Flow Rate 0 Medical Decision Making Findings Facility Status: ED Holds, [facility] process The plan was discussed with the patient, who demonstrates clear understanding of the plan and is in agreement with the plan unless otherwise noted in the chart. All questions have been answered, all concerns were addressed unless otherwise documented. I was available throughout their ED stay for frequent reassessment and questions. Differential Diagnoses (considered and possible or likely): [Differential diagnosis considered includes acute appendicitis, acute cholecystitis, pancreatitis, gastritis, PUD, diverticulitis, mesenteric ischemia, abdominal aortic aneurysm, bowel obstruction, enteritis, colitis, fecal impaction, volvulus, IBS, inflammatory bowel disease, specific food intolerance, peritonitis, perforated viscous, malignancy, UTI, abscess, and abdominal pain NOS. Pelvic source of pain was also considered including endometritis, dysmenorrhea, ovarian cyst, ovarian torsion, PID, TOA, cervicitis, vaginitis, or uterine fibroid. History, physical exam, and workup exclude many of the more serious causes listed above. ] ??Differential Diagnoses (considered and unlikely, not requiring evaluation currently): [Aortic/great vessels dissection was considered but it is unlikely based on absence of ripping, tearing, migratory chest pain, absence of syncope or focal neurologic deficits, physical examination indicating equal and symmetric pulses.] MDM Data Please see [facility] for the following: Independent Historians and external Records Review. Historian: [Patient] Independent Historians: ?[None] Medication Management: [Reviewed medication list] Social History and determinants: [Reviewed] Please see the body of the note for the following: Any independent interpretations of ECG, imaging studies. All vitals signs/haemodynamics, ordered tests were independently reviewed and interpreted by myself. Nursing triage complaint and vitals reviewed, additional nursing notes were reviewed as available and I agree unless otherwise noted or documented in contradiction in the chart Vital Signs: Independently reviewed Labs: Independently interpreted Imaging: Independently interpreted Old Medical Records: Independently reviewed, see [facility] for relevant summary and information Pulse Oximetry: [99%] interpreted as [normal on room air] by me [Mortgage Broker: [Regular Rate, Regular rhythm, no ectopy, NSR] reviewed and interpreted by me] Additionally notably showing: [Hemodynamics reviewed. The patient isn't febrile, not tachycardic, no evidence of hypotension or respiratory distress. CBC normal. Metabolic panel is essentially unremarkable. Lipase is also normal. Urine nondiagnostic for UTI, diluted, no evidence of blood in urine. Advanced imaging of the abdomen was obtained showing no acute intra-abdominal process. Incidental finding of right adnexal cyst.] Tests considered but not ordered include: [Ultrasound has been considerably the patient is already status post cholecystectomy and hysterectomy] Social Determinants of Health Impact: Patient was evaluated in [facility], [facility] [place] to healthcare due to below par ratio of patient to medical providers. [] Comorbid Conditions Impacting Present Evaluation and Care/Treatment: [] Management Discussions with other Healthcare Providers: [] Treatment and Disposition Medication Management (Given or considered): [Pain management]. See EMR for details Consideration for Hospitalization/Escalation/Deescalation of Care: Admission for observation has been considered, [however the patient is able to tolerate p.o., their symptoms are controlled, they are able to rely on oral medications, and their chief complaint/diagnosis can be managed on outpatient basis.] ?ED Course:?[Patient is status post oophorectomy as well. Her adnexal cyst is now concerning for structure that the logically should not be there as she does not have ovaries, tubes, or uterus. She denies any risk factors for STDs, this is unlikely to represent tubo-ovarian abscess. Malignancy can not be excluded.] ?Shared decision making:?[Patient is hemodynamically stable for discharge home with follow with their primary care provider. [ Had an extensive conversation with the patient to need to follow-up on the incidental finding of adnexal cyst.] Specific and cautious return precautions provided and discussed with full understanding. Any incidental findings were also discussed and follow up recommendations given. [] All questions answered. Patient/family were able to verbalize back return precautions. Patient/family agree to plan. Copies of imaging and laboratory studies were provided.] Code status:?FULL Please see the full Electronic Medical Record for full details of nursing documentation, medications list, other records of complete past medical history and conditions, vital signs, laboratory studies, and any radiologic study interpretations by radiologists. Portions of this note were completed using [employer] dictation software and as a result there may exist minor errors in spelling. I have reviewed elements of past family and social history and agree a s included in note. Departure Disposition: 01 HOME / SELF CARE / HOMELESS Impression: Primary Impression: Abdominal pain Condition: Improved Discharge Instructions: Abdominal Pain (Nonspecific) Additional Instructions: You have an incidental finding of 4 cm right adnexal cyst. You need to follow- up with the ultrasound on outpatient basis to take better look at this cyst as well as potentially repeat CT in three months to make sure it is not growing and does not represent a gynecological cancer. Referrals: NO PRIMARY CARE PROVIDER (PCP) Prescriptions ONDANSETRON ODT 4mg tablet (ONDANSETRON ODT) 4 Mg Tab.rapdis 1 TAB PO Q6H PRN PRN for nausea/vomiting for 4 Days, #16 TAB 0 Refills Prov: RAMONE DOMINGUEZ DO 11/18/24 Hydrocodone Bit/Acetaminophen 5/325 MG (Ackley 5/325 MG) 5 Mg/325 Mg Tablet 1 TAB PO Q6H PRN for pain for 7 Days, #28 TAB Prov: RAMONE DOMINGUEZ DO 11/18/24 Education Educated: Patient Educated regarding: diagnosis, treatment, prognosis, need for follow up Signature Scribe Signature: No scribe Attestation: This note accurately reflects clinical decisions, work performed by myself, DO ANGELICA Marques NICHOLAS M DO Nov 18, 2024 00:44
[2024-11-18] MEDS: normal saline 1000ML IV soln IVB ONE (00:56)
[2024-11-18] MEDS: morphine 4 MG/ML inj SYRINge IV ONE ×2 (01:00→03:04)
[2024-11-18] MEDS: ondansetron/PF 4mg/2ml inj IV ONE (01:00)
[2024-11-18] MEDS ORDERED: iohexol 300mg/ml 100ml inj. ONE (01:11)
[2024-11-18 01:24] LABS: BASOPHILS # (AUTO) 0.1 X10'3 (0-0.2); BASOPHILS % (AUTO) 0.9 % (0-1); EOSINOPHILS # (AUTO) 0.3 X10'3 (0-0.9); EOSINOPHILS % (AUTO) 3.5 % (0-6); HEMATOCRIT 40.9 % (35.0-45.0); HEMOGLOBIN 14.1 g/dl (12.0-16.0); LYMPHOCYTES # (AUTO) 2.9 X10'3 (1.1-4.8); LYMPHOCYTES % (AUTO) 32.7 % (21-51); MEAN CORPUSCULAR HEMOGLOBIN 29.8 PG (27.0-31.0); MEAN CORPUSCULAR HGB CONC 34.6 g/dL (33.0-36.5); MEAN CORPUSCULAR VOLUME 86.1 FL (78-98); MEAN PLATELET VOLUME 8.5 FL (7.4-10.4); MONOCYTES # (AUTO) 0.7 X10'3 (0-0.9); MONOCYTES % (AUTO) 7.8 % (2-12); NEUTROPHILS # (AUTO) 4.9 X10'3 (1.8-7.7); NEUTROPHILS % (AUTO) 55.1 % (42-75); PLATELET COUNT 281 X10'3 (140-440); RED BLOOD COUNT 4.75 X10'6 (4.20-5.60); RED CELL DISTRIBUTION WIDTH 12.8 % (11.5-14.5); WHITE BLOOD COUNT 8.9 X10'3 (4.5-11.0)
[2024-11-18 01:39] LABS: HCG SERUM QL NEGATIVE
[2024-11-18 01:41] LABS: ALANINE AMINOTRANSFERASE 41 U/L (12-78); ALBUMIN 3.5 G/DL (3.4-5.0); ALKALINE PHOSPHATASE 100 IU/L (46-116); ANION GAP 8 (8-16); ASPARTATE AMINO TRANSFERASE 27 U/L (10-37); BILIRUBIN,TOTAL 0.8 MG/DL (0.1-1.0); BLOOD UREA NITROGEN 8 MG/DL (7-18); BUN/CREATININE RATIO 11.1 (10.0-20.0); CALCIUM 8.4 MG/DL (8.5-10.1); CHLORIDE 104 MMOL/L (99-107); CREATININE 0.72 MG/DL (0.40-0.90); GLUCOSE 88 MG/DL (70-104); LIPASE 51 U/L (16-77); MAGNESIUM 2.1 MG/DL (1.5-2.4); SODIUM 140 MMOL/L (135-145); TOTAL CARBON DIOXIDE 27.8 MMOL/L (24-32); TOTAL PROTEIN 6.9 G/DL (6.4-8.2); eCRCL 94 ML/MIN; eGFR 90 ML/MIN
[2024-11-18 01:43] LABS: POTASSIUM 3.5 MMOL/L (3.5-5.1)
--- NOTE | 2024-11-18 02:08 | RADIOLOGY REPORT ---
Exam: CT CT ABDOMEN PELVIS W/ IV CONTRAST History: Lower abdominal pain radiating to the back COMPARISON: CT ABDOMEN PELVIS on DOS: 02/01/21 Technique: Multidetector spiral CT of the abdomen and pelvis was performed from lung bases to pubic s ymphysis. Intravenous contrast was administered during this examination. Portal venous imaging was obtained. Axial, coronal and sagittal multiplanar reformats were performed by the technologist on a separate workstation. Radiation Dose : 1. Abdomen/Pelvis: CTDIvol mGy, DLP mGy*cm. CONTRAST: Type of contrast: Contrast injected: ml Contrast ingested: ml Findings: Lung Bases: No abnormality demonstrated. Liver: Liver is normal in size. No focal lesions noted. Gallbladder and Biliary Tree: Cholecystectomy. No evidence of biliary ductal dilatation. Spleen: No abnormality demonstrated. Pancreas: No abnormality demonstrated. Adrenal Glands: No abnormality demonstrated. Kidneys: Three nonobstructing calculi are noted in the right kidney, measuring 4 mm in the lower coredlia e, 3 mm in the mid pole, and 2 mm in the upper pole. Two nonobstructing calculi noted in the upper po le of the left kidney the larger measuring 4 mm. Both kidneys otherwise appear unremarkable. No hydro ureteronephrosis. Bladder: Grossly unremarkable for degree of distention. Bowel: Stomach appears grossly unremarkable. No abnormally dilated or thick-walled loops of large or small bowel noted. Appendix appears unremarkable. Ascites: Absent Lymphadenopathy: No evidence of lymphadenopathy. Abdominal Wall and Mesentery: Unremarkable. Vasculature: Unremarkable. Pelvic Organs: Right adnexal cyst measuring up to 4.2 cm. Otherwise unremarkable. Musculoskeletal: No bony lesions or fracture. IMPRESSION: Right adnexal cyst measuring up to 4.2 cm. Bilateral nonobstructing renal calculi. Radiation optimization: All CT scans at this facility use at least one of these dose optimization christal hniques: automated exposure control mA and/or kV adjustment per patient size (includes targeted exam s where dose is matched to clinical indication) or iterative reconstruction.
[2024-11-18 02:16] LABS: BILIRUBIN,URINE NEGATIVE (Neg); CLARITY,URINE CLEAR (Clear); COLOR,URINE YELLOW (Yellow); GLUCOSE, URINE NEGATIVE (Neg); KETONES,URINE NEGATIVE (Neg); LEUKOCYTE ESTERASE ,URINE NEGATIVE (Neg); NITRITES, URINE NEGATIVE (Neg); OCCULT BLOOD,URINE NEGATIVE (Neg); PROTEIN,URINE NEGATIVE (Neg); UROBILINOGEN,URINE 0.2 E.U/dL (0.2-1.0)
[2024-11-18 02:18] LABS: UA COLLECTION TYPE CLN CATCH MIDSTREAM
[2024-11-18] MEDS ORDERED: ONDA-243 PO (02:33)
[2024-11-18] MEDS ORDERED: HYDR-3965 PO (02:33)
[2024-11-18] MEDS: ketorolac trometh 30MG/ML vial 30 MG/ML VIAL IV ONE (03:04)
[2024-11-18 03:11] VITALS: BP 136/86; PULSE 60; RESP 16; O2SAT 97
== END 2024-11-18 03:31 | disposition home or self-care (01) ==
LOC: ER 00:05
DX: R10.30 Lower abdominal pain, unspecified (principal); Z90.721 Acquired absence of ovaries, unilateral
CPT/HCPCS: 36415; 74177; 80053; 81003; 83690; 83735; 84484; 84703; 85025; 96361; 96374; 96375; 96376; 99285; J1885; J2270; J2405; J7030; Q9967